=== PATIENT | male | born 1965 | race Caucasian/White ===

== ENCOUNTER → 2017-04-09 | Outpatient (CLI) | payer BC ==
[~2017-04-09] MED LIST: ASPIRIN81 M1 PO; DEXILANT60 MG PO; KLONOPIN0.5 M1 PO; LIPITOR40 MG PO; NEXIUM PO; PRINIVIL10 MG PO; ZYLOPRIM100 MG PO
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
== END | disposition home or self-care (01) ==
LOC: CRAD 13:32
DX: M50.00 Cervical disc disorder with myelopathy, unspecified cervical region (principal)
CPT/HCPCS: 72050